=== PATIENT | male | born 1985 | race African-American/Black ===

== ENCOUNTER 2016-08-15 03:41 | Emergency (ER) | payer SELFPAY ==
[2016-08-15 03:55] VITALS: BP 107/70; BMI 23.7
[2016-08-15] MEDS ORDERED: TORADOL 30 MG VIAL IVP ONE (04:09)
--- NOTE | 2016-08-15 04:09 | DR.GENAD ---
HPI - PCP Primary Care Physician: nfd - Complaint/Symptoms Chief Complaint Doctors Comments: Patient presents with c/o stomach pain since early this PM. He was diagnosed with cholelithiasis and probably cholecystitis on 07/18/16 advised at that time that he needed surgery. Patient is afebrile, vital signs are stable. Chief Complaint:: pt c/o abd pain - Source History Provided: Patient - Mode of Arrival Mode of Arrival: EMS - Timing Onset of Chief Complaint: 08/15/16 PMH - PMH Past Medical History: Yes Past Medical History: Asthma Past Surgical History: No - Family History History of Family Medical Conditions: Yes Family Medical History: Cancer - Social History Alcohol Use: None Do you use any recreational Drugs:: Yes Lives With: Family Lives Where: Home - infectious screening In the last 2 months have you had wt loss of >10#?: NO Have you had fever, night sweats or hemotysis?: No Have you traveled outside the country in the last 6 months?: No Isolation: Standard ROS - Review of Systems Constitutional: No Symptoms Reported Eyes: No Symptoms Reported ENTM: No Symptoms Reported Respiratoy: No Symptoms Reported Cardiovascular: No Symptoms Reported Gastrointestinal/Abdominal: See HPI, Abdominal Pain Genitourinary: No Symptoms Reported Neurological: No Symptoms Reported Musculoskeletal: No Symptoms Reported Integumentary: No Symptoms Reported Hematologic/Lymphatic: No Symptoms Reported Endocrine: No Symptoms Reported Psychiatric: No Symptoms Reported All Other Systems: Reviewed and Negative PE - Vital Signs Vitals: Temperature 97.8 F Pulse Rate 59 Respiratory Rate 16 Blood Pressure 107/70 O2 Sat by Pulse Oximetry 100 - General Limitations: No Limitations General Appearance: Alert, Anxious - Head Head Exam: Normal Inspection, Atraumatic - Eyes Eye exam: Normal Appearance, PERRL, EOMI. negative: Scleral Icterus - ENT ENT Exam: Normal Exam External Ear Exam: Normal External Inspection TM/Canal Exam: Bilateral Normal Nose Exam: Normal Nose Exam Mouth Exam: Normal Inspection Throat Exam: Normal Inspection - Neck Neck Exam: Normal Inspection, Full ROM - Chest Chest Inspection: Normal Inspection - Respiratory Respiratory Exam: Normal Lung Sounds Bilat Respiratory Exam: Bilateral Clear to Auscultation - Cardiovascular Cardiovascular Exam: Regular Rate, Normal Rhythm - Abdominal Exam Abdominal Exam: Normal Inspection Abdominal Tenderness: RUQ, RLQ - Extremities Extremities Exam: Normal Inspection, Full ROM - Back Back Exam: Normal Inspection - Neurologic Neurological Exam: Alert, Oriented X3, CN II-XII Intact - Psychiatric Psychiatric Exam: Flat Affect - Skin Skin Exam: Warm, Dry, Intact - Diagnosis Discharge Problem: Cholelithiasis Qualifiers: Cholelithiasis location: gallbladder Cholecystitis presence: with cholecystitis Cholecystitis acuity: acute and chronic Biliary obstruction: without biliary obstruction Qualified Code(s): K80.12 - Calculus of gallbladder with acute and chronic cholecystitis without obstruction - Discharge Plan Condition: Stable - Follow ups/Referrals Follow ups/Referrals: NFD,None [Primary Care Provider] - 3 days - Instructions
[2016-08-15] MEDS ORDERED: MORPHINE SULFATE INJ 4 MG IVP ONE (04:10)
[2016-08-15] MEDS ORDERED: MORPHINE SULFATE INJ 4 MG ONE (04:12)
[2016-08-15] MEDS ORDERED: TORADOL 30 MG VIAL ONE (04:12)
== END 2016-08-15 05:06 | disposition home or self-care (01) ==
LOC: ER 03:41
DX: K80.20 Calculus of gallbladder without cholecystitis without obstruction (principal)
CPT/HCPCS: 96365; 96374; 96375; 99283; J1885; J2270

== ENCOUNTER 2016-12-13 22:28 | Emergency (ER) | payer SELFPAY ==
[2016-12-13 22:34] VITALS: BP 115/75; BMI 24.4
--- NOTE | 2016-12-13 23:29 | DR.GENAD ---
HPI - PCP Primary Care Physician: NFD - Complaint/Symptoms Chief Complaint Doctors Comments: patient presents with complaint of stomach pain since yesterday, pain is sharp 10/10 aggravated by motion. On 07/18/16 he was diagnosed with cholelithiasis. He was advised to follow up with a surgeon Chief Complaint:: ABD PAIN ONSET YESTERDAY Self Treatment fo Chief Complaint: NONE - Source History Provided: Parent - Mode of Arrival Mode of Arrival: Ambulatory - Timing Onset of Chief Complaint: 12/12/16 PMH - PMH Past Medical History: Yes Past Medical History: Asthma Past Surgical History: No - Family History History of Family Medical Conditions: Yes Family Medical History: Cancer - Social History Does patient currently use any type of tobacco product: Yes Have you used tobacco products in the last 12 months: Yes Type of Tobacco Use: Cigarettes Does any household member use tobacco: No Alcohol Use: None Do you use any recreational Drugs:: No Lives With: Family Lives Where: Home - infectious screening In the last 2 months have you had wt loss of >10#?: NO Have you had fever, night sweats or hemotysis?: No Have you traveled outside the country in the last 6 months?: No Isolation: Standard ROS - Review of Systems Eyes: No Symptoms Reported ENTM: No Symptoms Reported Respiratoy: No Symptoms Reported Cardiovascular: No Symptoms Reported Gastrointestinal/Abdominal: Abdominal Pain Genitourinary: No Symptoms Reported Neurological: No Symptoms Reported Musculoskeletal: No Symptoms Reported Integumentary: No Symptoms Reported Hematologic/Lymphatic: No Symptoms Reported Endocrine: No Symptoms Reported Psychiatric: No Symptoms Reported All Other Systems: Reviewed and Negative PE - Vital Signs Vitals: Temperature 97.5 F Pulse Rate 65 Respiratory Rate 16 Blood Pressure 115/75 O2 Sat by Pulse Oximetry 100 - General General Appearance: Alert, In Distress - Head Head Exam: Normal Inspection, Atraumatic - Eyes Eye exam: Normal Appearance, PERRL, EOMI - ENT ENT Exam: Normal Exam External Ear Exam: Normal External Inspection TM/Canal Exam: Bilateral Normal Nose Exam: Normal Nose Exam Mouth Exam: Normal Inspection Throat Exam: Normal Inspection - Neck Neck Exam: Normal Inspection - Chest Chest Inspection: Normal Inspection - Respiratory Respiratory Exam: Normal Lung Sounds Bilat Respiratory Exam: Bilateral Clear to Auscultation - Cardiovascular Cardiovascular Exam: Regular Rate - Abdominal Exam Abdominal Exam: Normal Inspection Abdominal Tenderness: RUQ - Extremities Extremities Exam: Normal Inspection - Back Back Exam: Normal Inspection - Neurologic Neurological Exam: Alert, Oriented X3, CN II-XII Intact - Psychiatric Psychiatric Exam: Normal Affect, Agitated - Skin Skin Exam: Warm, Dry, Intact Course - Treatment Treatment: Toradol 60mg IM ROR - XRAY XRAY Interpreted by: Radiologist (07/18/16 ) - Diagnosis Discharge Problem: Cholelithiasis Qualifiers: Cholelithiasis location: gallbladder Cholecystitis presence: without cholecystitis Biliary obstruction: with biliary obstruction Qualified Code(s): K80.21 - Calculus of gallbladder without cholecystitis with obstruction - Discharge Plan Condition: Stable - Follow ups/Referrals Follow ups/Referrals: NFD,None [Primary Care Provider] - 3 days - Instructions
[2016-12-13] MEDS ORDERED: TORADOL 60 MG VIAL IM ONE (23:31)
[2016-12-13] MEDS ORDERED: TORADOL 60 MG VIAL ONE (23:32)
== END 2016-12-14 00:08 | disposition home or self-care (01) ==
LOC: ER 22:46
DX: K80.21 Calculus of gallbladder without cholecystitis with obstruction (principal)
CPT/HCPCS: 96372; 99282; J1885

== ENCOUNTER 2017-08-15 17:50 | Observation (INO) | payer SELFPAY ==
--- NOTE | 2017-08-15 18:09 | DR.ABDMALE ---
HPI - Time seen Time seen: 18:00 - PCP Primary Care Physician: DAYNA - HPI comment HPI Comment: PATIENT HAVE GALL STONE WITH INTERMITTENT PAIN. PAIN TODAY SEVERE WITH NAUSE. NO VOMITING. NO FEVER. - Complaint Chief Complaint Doctors Comments: ABDOMINAL PAIN WITH NAUSEA THAT GOT WORSE TODAY. Chief Complaint:: PT C/O ABOUT 20 MIN AGO MY ABD STARTED AND HE POINTS TO HIS EPIGASTRIC AREA AND PT IS HURTING AND ITS HIS GALLSTONES AND THAT [place] BUT HE COULD NOT WAIT.. Self Treatment fo Chief Complaint: PT PLACED W/C AND TAKEN TO TRIAGE PT IS ALERT AND APPEARS TO TO BE IN NO DISTRESS .. - Reviewed Nurses Notes Review: Yes - Mode of arrival Mode of Arrival: EMS - Timing Onset of Chief Complaint: 08/15/17 Came on: Suddenly - Duration Duration: Constant Duration: Days - Location Location: RUQ, LUQ, Epigastric - Severity Severity: Moderate - Quality Quality: Sharp - Context Onset: Suddenly History of: Similar pain (dx) - Modifying factors Worsening Factors: Food Improving Factors: Nothing - Associated signs and symptoms Associated Signs and Symptoms: Nausea PMH - PMH Past Medical History: No Past Medical History: Asthma Past Surgical History: No - Family History History of Family Medical Conditions: Yes Family Medical History: Cancer - Social History Does patient currently use any type of tobacco product: Yes Have you used tobacco products in the last 12 months: Yes How many years tobacco product used: 20 Does any household member use tobacco: No Alcohol Use: None Do you use any recreational Drugs:: No Lives With: Family Lives Where: Home - infectious screening In the last 2 months have you had wt loss of >10#?: NO Have you had fever, night sweats or hemotysis?: No Have you traveled outside the country in the last 6 months?: No Isolation: Standard ROS - Review of Systems Constitutional: No Symptoms Reported Eyes: No Symptoms Reported ENTM: No Symptoms Reported Respiratoy: No Symptoms Reported Cardiovascular: No Symptoms Reported Gastrointestinal/Abdominal: Abdominal Pain, Nausea Genitourinary: No Symptoms Reported Neurological: No Symptoms Reported Musculoskeletal: No Symptoms Reported Integumentary: No Symptoms Reported Hematologic/Lymphatic: No Symptoms Reported Endocrine: No Symptoms Reported All Other Systems: Reviewed and Negative PE - Vital Signs Vital Signs: Temp Pulse Resp BP Pulse Ox 08/15/17 17:53 96.8 F L 58 L 20 106/64 98 12/13/16 22:29 115/75 - General Limitations: No Limitations General Appearance: Alert - Head Head Exam: Normal Inspection - Eyes Eye exam: Normal Appearance - ENT ENT Exam: Normal External Ear Exam - Neck Neck Exam: Normal Inspection - Chest Chest Inspection: Symmetric Chest Wall Rise - Respiratory Respiratory Exam: Normal Lung Sounds Bilat Respiratory Exam: Bilateral Clear to Auscultation - Cardiovascular Cardiovascular Exam: Regular Rate, Normal Rhythm, Normal Heart Sounds - Abdominal Exam Abdominal Exam: Normal Bowel Sounds, Soft, Tenderness - Rectal Rectal Exam: Deferred - Back Back Exam: Normal Inspection - Extremeties Extremities Exam: Normal Inspection - Exam: Male: Normal Inspection - Neurologic Neurological Exam: Alert, Oriented X3 - Psychiatric Psychiatric Exam: Anxious - Skin Skin Exam: Normal Color MDM - Differential Diagnosis Differential Diagnosis: Bowel Obstruction, Cholcystitis, Cholelethiasis, Gastritus/PUD, Gastroenteritis, Inflammatory BD, Ischemic Bowel, Pancreatitis, Urinary tract infection, Urolithiasis Course - Treatment Treatment: SEE ORDERS. IV FLUID AND PAIN MED IN ED. - Consultation Consultation Comments: PATIENT DISCUSS WITH DR. TATUM, SURGEON. MEDICINE TO ADMIT PATIENT, SURGICAL CONSULT.TO HIM. DR. RAMIREZ WILL ADMIT PATIENT. - Education/Counseling Education/Counseling: Patient, Education Educated On: Treatment, Diagnosis ROR - Labs Reviewed Laboratory Results Reviewed?: Yes Result Diagrams: 08/15/17 18:22 08/15/17 18:22 Laboratory: WBC 7.0 X10^3/uL (3.6-10.0) 08/15/17 18: RBC 4.87 X10^6/uL (4.7-6.0) 08/15/17 18: Hgb 15.7 g/dL (13.5-18.0) 08/15/17 18: Hct 45.7 % (42.0-54.0) 08/15/17 18: MCV 93.8 fL (80.0-100.0) 08/15/17 18: MCH 32.2 pg (27.0-34.0) 08/15/17 18: MCHC 34.3 g/dL (33.0-35.0) 08/15/17 18: RDW 12.6 % (11.6-16.5) 08/15/17 18:22 Plt Count 280 X10^3/uL (150.0-450.0) 08/15/17 18: MPV 7.8 fL (7.4-11.0) 08/15/17 18: Neut % (Auto) 72.2 % (42.0-75.0) 08/15/17 18: Lymph % (Auto) 19.6 % (21.0-51.0) L 08/15/17 18: [place] % (Auto) 6.2 % (0.0-13.0) 08/15/17 18: Eos % (Auto) 1.1 % (0.9-2.9) 08/15/17 18: Baso % (Auto) 0.9 % (0.2-1.0) 08/15/17 18: Neut # (Auto) 5.0 x10^3/uL (2.2-4.8) H 08/15/17 18: Lymph # (Auto) 1.4 X10^3/uL (1.3-2.9) 08/15/17 18: [place] # (Auto) 0.4 x10^3/uL (0.3-0.8) 08/15/17 18: Eos # (Auto) 0.1 x10^3/uL (0.0-0.2) 08/15/17 18: Baso # (Auto) 0.1 X10^3/uL (0.0-0.1) 08/15/17 18: Absolute Nucleated RBC 0.0 /100WBC 08/15/17 18: Sodium 143 mmol/L (136-145) 08/15/17 18: Corrected Sodium TNP 08/15/17 18: Potassium 3.7 mmol/L (3.5-5.1) 08/15/17 18: Chloride 104 mmol/L (98-107) 08/15/17 18: Carbon Dioxide 29.7 mmol/L (21-32) 08/15/17 18: BUN 15 mg/dL (7-18) 08/15/17 18: Creatinine 1.19 mg/dL (0.70-1.30) 08/15/17 18: Est GFR (MDRD) Af Amer > 60 (>60) 08/15/17 18:22 Est GFR (MDRD) Non-Af > 60 (>60) 08/15/17 18:22 Glucose 73 mg/dL (65-99) 08/15/17 18:22 Calcium 9.0 mg/dL (8.5-10.1) 08/15/17 18:22 Corrected Calcium TNP 08/15/17 18: Total Bilirubin 1.30 mg/dL (0.2-1.0) H 08/15/17 18:22 AST 45 Units/L (15-37) H 08/15/17 18:22 ALT 41 Units/L (12-78) 08/15/17 18:22 Alkaline Phosphatase 88 Units/L (46-116) 08/15/17 18: Total Protein 8.7 g/dL (6.4-8.2) H 08/15/17 18: Albumin 4.3 g/dL (3.4-5.0) 08/15/17 18: Globulin 4.4 g/dL (2.5-4.5) 08/15/17 18:22 Albumin/Globulin Ratio 1.0 Ratio (1.1-2.1) L 08/15/17 18: Amylase 86 Units/L (25-115) 08/15/17 18:22 Lipase 235 Units/L (73-393) 08/15/17 18:22 Specimen Type Clean catch urine 08/15/17 19:00 Urine Color Dark yellow (YELLOW) 08/15/17 19:00 Urine Appearance Slightly hazy (CLEAR) 08/15/17 19:00 Urine pH 6.5 (5.0 - 8.0) 08/15/17 19:00 Ur Specific [place] 1.020 (1.000-1.030) 08/15/17 19:00 Urine Protein 1+ (NEGATIVE) 08/15/17 19:00 Urine Glucose (UA) Negative (NEGATIVE) 08/15/17 19:00 Urine Ketones 1+ (NEGATIVE) 08/15/17 19:00 Urine Occult Blood Negative (NEGATIVE) 08/15/17 19:00 Urine Nitrite Negative (NEGATIVE) 08/15/17 19:00 Urine Bilirubin Negative (NEGATIVE) 08/15/17 19:00 Urine Urobilinogen 1+ (NORMAL) 08/15/17 19:00 Ur Leukocyte Esterase 1+ (NEGATIVE) 08/15/17 19:00 Urine RBC None seen /HPF (NONE SEEN) 08/15/17 19:00 Urine WBC 0-2 /HPF (NONE SEEN) 08/15/17 19:00 Ur Squamous Epith Cells Negative /HPF (NEGATIVE) 08/15/17 19:00 Ur Transition Epith Cell Cancelled 08/15/17 18:48 Ur Renal Epithelial Cell Cancelled 08/15/17 18:48 Calcium Oxalate Crystal Cancelled 08/15/17 18:48 Cystine Crystals Cancelled 08/15/17 18:48 Uric Acid Crystals Cancelled 08/15/17 18:48 Triple Phos Crystals Cancelled 08/15/17 18:48 Tyrosine Crystals Cancelled 08/15/17 18:48 Other Crystals Cancelled 08/15/17 18:48 Amorphous Sediment Trace /HPF (NEGATIVE) 08/15/17 19:00 Urine Bacteria Trace /HPF (NEGATIVE) 08/15/17 19:00 Hyaline Casts Cancelled 08/15/17 18:48 Granular Casts Cancelled 08/15/17 18:48 Fine Granular Casts Cancelled 08/15/17 18:48 Coarse Granular Casts Cancelled 08/15/17 18:48 RBC Casts Cancelled 08/15/17 18:48 Other Casts Cancelled 08/15/17 18:48 Urine Mucus Rare /HPF (NEGATIVE) 08/15/17 19:00 Urine Trichomonas Cancelled 08/15/17 18:48 Urine Yeast Cancelled 08/15/17 18:48 Urine Sperm Rare /HPF (NEGATIVE) 08/15/17 19:00 Ur Culture Indicated? No/not indicated 08/15/17 19:00 - XRAY XRAY Interpreted by: Radiologist XRAY Findings: REPORT DISCUSS WITH PATIENT. - Diagnosis Discharge Problem: Cholelithiasis Qualifiers: Cholelithiasis location: gallbladder and bile duct Cholecystitis presence: with cholecystitis Cholecystitis acuity: acute and chronic Biliary obstruction: without biliary obstruction Qualified Code(s): K80.66 - Calculus of gallbladder and bile duct with acute and chronic cholecystitis without obstruction Abdominal pain Qualifiers: Abdominal location: upper abdomen, unspecified Qualified Code(s): R10.10 - Upper abdominal pain, unspecified - Discharge Plan Disposition: ADMITTED INPATIENT Condition: Stable - Follow ups/Referrals - Instructions
[2017-08-15 18:36] LABS: BASOPHILS # (AUTO) 0.1 X10^3/uL (0.0-0.1); BASOPHILS % (AUTO) 0.9 % (0.2-1.0); EOSINOPHILS # (AUTO) 0.1 x10^3/uL (0.0-0.2); EOSINOPHILS % (AUTO) 1.1 % (0.9-2.9); HEMATOCRIT 45.7 % (42.0-54.0); HEMOGLOBIN 15.7 g/dL (13.5-18.0); LYMPHOCYTES # (AUTO) 1.4 X10^3/uL (1.3-2.9); LYMPHOCYTES % (AUTO) 19.6 % (21.0-51.0); MEAN CORPUSCULAR HEMOGLOBIN 32.2 pg (27.0-34.0); MEAN CORPUSCULAR HGB CONC 34.3 g/dL (33.0-35.0); MEAN CORPUSCULAR VOLUME 93.8 fL (80.0-100.0); MEAN PLATELET VOLUME 7.8 fL (7.4-11.0); MONOCYTES # (AUTO) 0.4 x10^3/uL (0.3-0.8); MONOCYTES % (AUTO) 6.2 % (0.0-13.0); NEUTROPHILS % (AUTO) 72.2 % (42.0-75.0); PLATELET COUNT 280 X10^3/uL (150.0-450.0); RED BLOOD COUNT 4.87 X10^6/uL (4.7-6.0); RED CELL DISTRIBUTION WIDTH 12.6 % (11.6-16.5)
[2017-08-15] MEDS ORDERED: NS 1000 ML 1,000 ML IV ONE (18:42)
[2017-08-15] MEDS ORDERED: DEMEROL INJ IM ONE (18:43)
[2017-08-15 18:44] LABS: ALANINE AMINOTRANSFERASE 41 Units/L (12-78); ALBUMIN 4.3 g/dL (3.4-5.0); ALKALINE PHOSPHATASE 88 Units/L (46-116); AMYLASE 86 Units/L (25-115); ASPARTATE AMINO TRANSFERASE 45 Units/L (15-37); BLOOD UREA NITROGEN 15 mg/dL (7-18); CARBON DIOXIDE 29.7 mmol/L (21-32); CHLORIDE 104 mmol/L (98-107); CREATININE 1.19 mg/dL (0.70-1.30); LIPASE 235 Units/L (73-393); SODIUM 143 mmol/L (136-145); TOTAL PROTEIN 8.7 g/dL (6.4-8.2); eGFR BLACK RACES > 60 (>60); eGFR NON BLACK RACES > 60 (>60)
[2017-08-15] MEDS ORDERED: NS 1000 ML 1,000 ML ONE (18:50)
[2017-08-15] MEDS ORDERED: DEMEROL INJ ONE (18:51)
[2017-08-15] MEDS ORDERED: ZOFRAN INJ 4 MG VIAL IVP ONE (18:51)
[2017-08-15] MEDS ORDERED: ZOFRAN INJ 4 MG VIAL ONE (18:51)
[2017-08-15 19:18] LABS: BILIRUBIN,URINE NEGATIVE (NEGATIVE); BLOOD/HEMOGLOBIN,URINE NEGATIVE (NEGATIVE); GLUCOSE, URINE NEGATIVE (NEGATIVE); KETONES,URINE 1+ (NEGATIVE); LEUKOCYTE ESTERASE ,URINE 1+ (NEGATIVE); NITRITES,URINE NEGATIVE (NEGATIVE); PH,URINE 6.5 (5.0 - 8.0); PROTEIN,URINE 1+ (NEGATIVE); UROBILINOGEN,URINE 1+ (NORMAL)
--- NOTE | 2017-08-15 19:20 | CT ---
HISTORY: Epigastric pain Study: CT abdomen and pelvis without contrast Comparison: Ultrasound 07/18/2016 Technique: Multiple axial images of the abdomen and pelvis were obtained without IV contrast. Dose reduction t echniques including Automated Exposure Control (AEC) and adjustment of mA and kV were utilized. Findings: Please note evaluation is limited without use of IV contrast. The visualized lung bases are clear. The liver, spleen, pancreas, kidneys, and adrenal glands are un remarkable in their unenhanced CT appearance. Gallbladder is distended. There is cholelithiasis noted . The intra and extrahepatic bile ducts do not appear significantly dilated. No renal calculi or obst ructive uropathy identified. No free intraperitoneal air. No evidence of intestinal obstruction or inflammation. The appendix is n ot clearly identified on this noncontrast exam. No free fluid is seen. The soft tissues and osseous structures are unremarkable. Limited evaluation of vascular structures d ue to lack of contrast. No pathologically enlarged lymph nodes are identified. The urinary bladder is not well distended. IMPRESSION: 1. Cholelithiasis and gallbladder distention. Consider correlation with ultrasound if clinically karen cated. 2. Otherwise negative noncontrast exam. Reported By:
[2017-08-15 19:21] LABS: APPEARANCE,URINE SLIGHTLY HAZY (CLEAR); COLOR,URINE DARK YELLOW (YELLOW)
[2017-08-15 19:22] LABS: AMORPHOUS SEDIMENT,UR TRACE /HPF (NEGATIVE); BACTERIA,URINE TRACE /HPF (NEGATIVE); MUCUS,URINE RARE /HPF (NEGATIVE); RBC,URINE NONE SEEN /HPF (NONE SEEN); SPERM,URINE RARE /HPF (NEGATIVE); SQUAMOUS EPITHELIAL CELL,UR NEGATIVE /HPF (NEGATIVE)
[2017-08-15] MEDS ORDERED: LR 1000 ML IV 1,000 ML IV ONE (20:09)
[2017-08-15] MEDS: LR 1000 ML IV 1,000 ML IV SCH (20:13)
[2017-08-15] MEDS ORDERED: PHENERGAN INJ 25 MG IVP PRN (21:04)
[2017-08-15] MEDS ORDERED: ZOFRAN INJ 4 MG VIAL IVP PRN (21:04)
[2017-08-15] MEDS: ZOSYN VIAL 3.375 GM 3.375 GM in NS 100 ML IV + SPIKE MINIBAG* 100 ML IV SCH (23:00)
[2017-08-15 23:37] VITALS: BMI 19.8
[2017-08-16] MEDS: LR 1000 ML IV 1,000 ML IV SCH ×3 (06:00→17:04)
[2017-08-16] MEDS: ZOSYN VIAL 3.375 GM 3.375 GM in NS 100 ML IV + SPIKE MINIBAG* 100 ML IV SCH ×3 (06:28→22:52)
[2017-08-16] MEDS ORDERED: VERSED ONE ×3 (11:03→13:11)
[2017-08-16] MEDS ORDERED: SUPRANE IN ONE ×2 (11:03→13:11)
[2017-08-16] MEDS ORDERED: ZOFRAN INJ 4 MG VIAL ONE ×2 (11:03→13:11)
[2017-08-16] MEDS ORDERED: QUELICIN (OR ANECTINE) ONE ×2 (11:03→13:11)
[2017-08-16] MEDS ORDERED: DIPRIVAN VIAL ONE ×2 (11:03→13:11)
[2017-08-16] MEDS ORDERED: NORCURON INJ 10 MG VIAL ONE ×2 (11:03→13:11)
[2017-08-16] MEDS ORDERED: XYLOCAINE 2 % (PLAIN) ONE ×2 (11:03→13:11)
[2017-08-16] MEDS ORDERED: LR 1000 ML IV 1,000 ML IV ONE ×2 (13:04→15:22)
[2017-08-16] MEDS ORDERED: ROBINUL ONE (13:11)
[2017-08-16] MEDS ORDERED: NEOSTIGMINE INJ ONE (13:11)
[2017-08-16] MEDS ORDERED: LTA KIT LIDOCAINE 4% ONE (13:11)
[2017-08-16] MEDS ORDERED: FENTANYL INJ 250 mcg ONE (13:33)
[2017-08-16] MEDS ORDERED: NS IRRIGATION IR ONE (15:29)
[2017-08-16] MEDS ORDERED: ZOFRAN INJ 4 MG VIAL IV PRN (16:08)
[2017-08-16] MEDS: D5 1/2 NS 1000 ML 1,000 ML IV SCH (18:12)
[2017-08-16] MEDS: MORPHINE SULFATE INJ 2 MG INJ IVP PRN ×2 (18:24→23:06)
[2017-08-16] MEDS: ANCEF VIAL 1 GM 1 GM in NS 100 ML IV + SPIKE MINIBAG* 100 ML IV SCH (21:02)
[2017-08-17] MEDS: LR 1000 ML IV 1,000 ML IV SCH (02:07)
[2017-08-17] MEDS: D5 1/2 NS 1000 ML 1,000 ML IV SCH (03:16)
[2017-08-17] MEDS: MORPHINE SULFATE INJ 2 MG INJ IVP PRN (03:17)
[2017-08-17] MEDS: ANCEF VIAL 1 GM 1 GM in NS 100 ML IV + SPIKE MINIBAG* 100 ML IV SCH (05:33)
[2017-08-17 06:15] LABS: BASOPHILS % (AUTO) 0.4 % (0.2-1.0); EOSINOPHILS # (AUTO) 0.1 x10^3/uL (0.0-0.2); HEMATOCRIT 38.6 % (42.0-54.0); HEMOGLOBIN 13.2 g/dL (13.5-18.0); LYMPHOCYTES # (AUTO) 1.2 X10^3/uL (1.3-2.9); LYMPHOCYTES % (AUTO) 24.1 % (21.0-51.0); MEAN CORPUSCULAR HEMOGLOBIN 32.1 pg (27.0-34.0); MEAN CORPUSCULAR HGB CONC 34.2 g/dL (33.0-35.0); MEAN PLATELET VOLUME 8.3 fL (7.4-11.0); MONOCYTES # (AUTO) 0.5 x10^3/uL (0.3-0.8); MONOCYTES % (AUTO) 9.1 % (0.0-13.0); NEUTROPHILS # (AUTO) 3.3 x10^3/uL (2.2-4.8); NEUTROPHILS % (AUTO) 64.4 % (42.0-75.0); PLATELET COUNT 245 X10^3/uL (150.0-450.0); RED BLOOD COUNT 4.11 X10^6/uL (4.7-6.0); RED CELL DISTRIBUTION WIDTH 12.7 % (11.6-16.5); WHITE BLOOD COUNT 5.2 X10^3/uL (3.6-10.0)
[2017-08-17] MEDS: ZOSYN VIAL 3.375 GM 3.375 GM in NS 100 ML IV + SPIKE MINIBAG* 100 ML IV SCH (06:20)
[2017-08-17 06:35] LABS: ALANINE AMINOTRANSFERASE 28 Units/L (12-78); ALBUMIN 2.7 g/dL (3.4-5.0); ALKALINE PHOSPHATASE 58 Units/L (46-116); ASPARTATE AMINO TRANSFERASE 20 Units/L (15-37); BLOOD UREA NITROGEN 7 mg/dL (7-18); CALCIUM 7.8 mg/dL (8.5-10.1); CARBON DIOXIDE 28.8 mmol/L (21-32); CHLORIDE 104 mmol/L (98-107); COR CA(FOR HYPOALB) 8.8 mg/dL (8.5-10.1); CREATININE 1.18 mg/dL (0.70-1.30); SODIUM 140 mmol/L (136-145); eGFR BLACK RACES > 60 (>60); eGFR NON BLACK RACES > 60 (>60)
[2017-08-17 14:52] VITALS: BP 105/57
== END 2017-08-17 13:10 | disposition home or self-care (01) ==
LOC: ER 18:03 → MED/SURG 20:54
PROVIDERS: ADMIT Obstetrics & Gynecology Obstetrics; ATTEND Obstetrics & Gynecology Obstetrics
PROC: 0FT44ZZ Resection of Gallbladder, Percutaneous Endoscopic Approach (ICD-10-PCS; principal; 2017-08-16 13:00)
DX: K80.66 Calculus of gallbladder and bile duct with acute and chronic cholecystitis without obstruction (principal); R10.84 Generalized abdominal pain; K80.10 Calculus of gallbladder with chronic cholecystitis without obstruction; R11.0 Nausea; R10.13 Epigastric pain; R10.10 Upper abdominal pain, unspecified
CPT/HCPCS: 36415; 74176; 80053; 81001; 82150; 83690; 85025; 96365; 96367; 96372; 96374; 99284; A4216; A4222; G0378; J0330; J0690; J2001; J2175; J2250; J2270; J2405; J2543; J2710; J3010; J3490; J7042; J7120